=== PATIENT | male | born 2000 | race Hispanic/Latino ===

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

== ENCOUNTER 2021-02-16 20:53 | Emergency (ER) | payer OTHER ==
[~2021-02-16] VITALS: Ht 177.8 cm; Wt 77.3 kg
[2021-02-16 23:44] VITALS: BP 105/62
== END 2021-02-16 23:51 | disposition home or self-care (01) ==
LOC: M ED 20:53
DX: S63.287A Dislocation of proximal interphalangeal joint of left little finger, initial encounter (principal); W23.1XXA Caught, crushed, jammed, or pinched between stationary objects, initial encounter; Y92.410 Unspecified street and highway as the place of occurrence of the external cause; Y93.9 Activity, unspecified; Y99.9 Unspecified external cause status